=== PATIENT | male | born 1960 | race Caucasian/White ===

== ENCOUNTER 2017-09-03 16:28 | Emergency (ER) | payer BC ==
[~2017-09-03] VITALS: Ht 172.7 cm; Wt 94.5 kg
[2017-09-03] MEDS ORDERED: SOD CHLORIDE 0.9% 1,000 ML IV STA (16:32)
[2017-09-03 16:42] VITALS: Ht 172.7 cm; Wt 94.5 kg
[2017-09-03 16:46] LABS: BASOPHIL # 0.1 10^3/ul (0.0-0.1); BASOPHILS % 0.9 % (0.0-2.0); EOSINOPHILS # 0.2 10^3/ul (0.0-0.5); EOSINOPHILS % 2.1 % (0.0-7.0); HEMATOCRIT 40.6 % (42.0-52.0); HEMOGLOBIN 14.3 g/dl (14.0-18.0); LYMPHOCYTES # 3.6 10^3/ul (0.8-2.9); LYMPHOCYTES % 39.1 % (15.0-51.0); MEAN CORPUSCULAR HEMOGLOBIN 31.7 pg (29.0-33.0); MEAN CORPUSCULAR HGB CONC 35.2 g/dl (32.0-37.0); MEAN PLATELET VOLUME 9.9 fl (7.4-10.4); MONOCYTE # 0.8 10^3/ul (0.3-0.9); MONOCYTES % 8.6 % (0.0-11.0); NEUTROPHIL # 4.5 10^3/ul (1.6-7.5); NEUTROPHILS % 48.9 % (39.0-77.0); PLATELET COUNT 270 10^3/UL (140-415); RED BLOOD COUNT 4.51 10^6/ul (4.70-6.10); RED CELL DISTRIBUTION WIDTH 12.4 % (11.5-14.5); WHITE BLOOD COUNT 9.1 10^3/ul (4.8-10.8)
--- NOTE | 2017-09-03 16:46 | RADRPT ---
PROCEDURE: CT brain without contrast CLINICAL INDICATION: Code stroke, neurologic deficit TECHNIQUE: CT of the brain without contrast was performed on a multidetector CT scanner. One or mo re of the following dose reduction techniques were used: Automated exposure control, adjustment in m A and / or kV according to patient size, use of iterative reconstructive technique. CTDIvol = 44 mG y; DLP = 720 mGy-cm. DICOM images are available. COMPARISON: None available FINDINGS: No acute intracranial hemorrhage is identified. No extra-axial fluid collection is seen. There is no mass effect. No midline shift is identified. Ventricles and sulci are within normal limits for size and configuration. The density of the brain appears unremarkable. Yanez-white differentiation appears preserved. Ather osclerotic calcifications are seen at the intracranial internal carotid arteries. Calvarium and skull base are intact. Mastoid air cells and imaged paranasal sinuses grossly clear. IMPRESSION: No acute intracranial pathology identified. Critical results called to Dr. Hightower at 04:44 p.m., 09/03/2017. RPTAT: GG .Jcarlos Elizabeth MD, Date Time Electronically viewed and signed by .Jcarlos Elizabeth MD, on 09/03/2017 16:46 .O/
[2017-09-03] MEDS ORDERED: SOD CHLORIDE 0.9% 50 ML IVPB STA (16:51)
[2017-09-03 17:00] LABS: INR 1.02; PARTIAL THROMBOPLASTIN TIME 29.7 Sec (25.0-35.0); PROTIME 13.4 Sec (12.2-14.2)
[2017-09-03] MEDS ORDERED: ALTEPLASE 100 MG INJ IV* ONE (17:00)
[2017-09-03] MEDS ORDERED: ALTEPLASE (tPA) 1 MG/ML BOLUS SYG IV* ONE (17:00)
[2017-09-03 17:02] LABS: ALANINE AMINOTRANSFERASE 47 IU/L (13-69); ALBUMIN 4.2 g/dl (3.3-4.9); ALBUMIN/GLOBULIN RATIO 1.16; ALKALINE PHOSPHATASE 81 IU/L (42-121); ANION GAP 15 (8-16); ASPARTATE AMINO TRANSFERASE 29 IU/L (15-46); BILIRUBIN,INDIRECT 0.5 mg/dl (0-1.1); BILIRUBIN,TOTAL 0.5 mg/dl (0.2-1.3); BLOOD UREA NITROGEN 22 mg/dl (7-20); CALCIUM 9.7 mg/dl (8.4-10.2); CARBON DIOXIDE 27 mmol/L (21-31); CHLORIDE 105 mmol/L (97-110); CREATININE 1.14 mg/dl (0.61-1.24); GLUCOSE 100 mg/dl (70-220); POTASSIUM 3.7 mmol/L (3.5-5.1); SODIUM 143 mmol/L (135-144); TOTAL PROTEIN 7.8 g/dl (6.1-8.1)
--- NOTE | 2017-09-03 17:10 | RADRPT ---
PROCEDURE: XR Chest. CLINICAL INDICATION: Possible Stroke TECHNIQUE: PA and Lateral views of the chest were obtained. COMPARISON: None. FINDINGS: The cardiomediastinal silhouette is within normal limits. The lungs are clear. No signs of pleural f luid or pneumothorax are seen. The osseous structures and soft tissues are unremarkable. IMPRESSION: No evidence for active cardiopulmonary disease. RPTAT:AAJJ Sabino Steinberg Physician Date Time Electronically viewed and signed by Sabino Steinberg Physician on 09/03/2017 17:09 QL/
[2017-09-03 17:13] VITALS: BP 154/85; PULSE 83; RESP 20
[2017-09-03 17:15] LABS: TROPONIN-I < 0.012 ng/ml (0.00-0.12)
[2017-09-03] MEDS ORDERED: METO-319 PO (17:30)
[2017-09-03] MEDS ORDERED: CLOP75TA27 PO (17:30)
[2017-09-03] MEDS ORDERED: ATOR80TA75 PO (17:31)
[2017-09-03] MEDS ORDERED: LISI2.5T59 PO (17:31)
--- NOTE | 2017-09-03 17:36 | ERD ---
ER Documentation Chief Complaint Chief Complaint BIB RA FOR EVAL OF RT SIDED WEAKNESS X 30 MINS AGO. HPI This a 57-year-old male with a history of stroke symptoms onset at 4:05 PM today. Patient said he has sudden onset of weakness in his right arm < right leg. He has no loss of sensation. No visual or speech change and no symptoms in the face. Patient is a poor historian about his medical history but states that he is on Plavix for heart problems and has been high blood pressure and cholesterol. Patient states he is only weakness and no sensation loss no loss of bowel or bladder no back pain no headache no recent illness or trauma. No recent melena no recent surgery no history of GI bleeding ROS All systems reviewed and are negative except as per history of present illness. Medications Home Meds Reported Medications Lisinopril* (Lisinopril*) 2.5 Mg Tablet, 2.5 MG PO DAILY, #30 TAB 09/03/17 Atorvastatin* (Atorvastatin*) 80 Mg Tablet, 80 MG PO QHS, #30 TAB 09/03/17 Metoprolol Succinate* (Toprol XL*) 50 Mg Tab.er.24h, 50 MG PO DAILY, #30 TAB 09/03/17 Clopidogrel Bisulfate (Clopidogrel) 75 Mg Tablet, 75 MG PO DAILY, #30 TAB 09/03/17 Allergies Allergies: Coded Allergies: No Known Allergy (Unverified , 09/03/17) PMhx/Soc Hx Alcohol Use: Yes (OCCASIONALLY) Hx Substance Use: No Hx Tobacco Use: No Smoking Status: Never smoker FmHx Family History: No coronary disease Physical Exam Vitals Vital Signs Date Time Temp Pulse Resp B/P Pulse Ox O2 Delivery O2 Flow Rate FiO2 09/03/17 17:58 82 16 170/87 98 09/03/17 17:43 79 16 140/90 98 09/03/17 17:31 88 18 142/92 98 09/03/17 17:28 82 20 146/79 97 09/03/17 17:13 83 20 154/85 98 Room Air 09/03/17 17:13 81 20 158/74 98 09/03/17 16:42 98.0 88 16 141/91 98 Physical Exam Const: Well-developed, well-nourished Head: Atraumatic, normocephalic Eyes: Normal Conjunctiva, PERRLA, EOMI, normal sclera, no nystagmus ENT: Normal External Ears, Nose and Mouth, moist mucus membranes. Neck: Full range of motion. No meningismus, no lymphadenopathy. Resp: Clear to auscultation bilaterally, no wheezing, rhonchi, rales Cardio: Regular rate and rhythm, no murmurs, S1 S2 present Abd: Soft, non tender x 4, non distended. Normal bowel sounds, no guarding or rebound, no pulsitile abdominal masses or bruits Skin: No petechiae or rashes, no ecchymosis , no maculopapular rash Back: No midline or flank tenderness Ext: No cyanosis, or edema, FROM x 4, normal inspection, neurovascularly intact x 4 Neur: Awake and alert, STR 5/5 x 2, right lower extremity strength is 2- 3/5, right upper extremity strength is 3-4 out of 5, sensation intact x 4, no focal findings, cerebellum intact Psych: Normal Mood and Affect Result Diagram: 09/03/17 1635 09/03/17 1635 Results 24 hrs Laboratory Tests Test 09/03/17 16:35 White Blood Count 9.110^3/ul Red Blood Count 4.5110^6/ul Hemoglobin 14.3g/dl Hematocrit 40.6% Mean Corpuscular Volume 90.0fl Mean Corpuscular Hemoglobin 31.7pg Mean Corpuscular Hemoglobin Concent 35.2g/dl Red Cell Distribution Width 12.4% Platelet Count 82144^3/UL Mean Platelet Volume 9.9fl Neutrophils % 48.9% Lymphocytes % 39.1% Monocytes % 8.6% Eosinophils % 2.1% Basophils % 0.9% Nucleated Red Blood Cells % 0.0/100WBC Neutrophils # 4.510^3/ul Lymphocytes # 3.610^3/ul Monocytes # 0.810^3/ul Eosinophils # 0.210^3/ul Basophils # 0.110^3/ul Nucleated Red Blood Cells # 0.010^3/ul Prothrombin Time 13.4Sec Prothrombin Time Ratio 1.0 INR International Normalized Ratio 1.02 Activated Partial Thromboplast Time 29.7Sec Sodium Level 143mmol/L Potassium Level 3.7mmol/L Chloride Level 105mmol/L Carbon Dioxide Level 27mmol/L Anion Gap 15 Blood Urea Nitrogen 22mg/dl Creatinine 1.14mg/dl Glucose Level 100mg/dl Hemoglobin A1c 5.6% Calcium Level 9.7mg/dl Total Bilirubin 0.5mg/dl Direct Bilirubin 0.00mg/dl Indirect Bilirubin 0.5mg/dl Aspartate Amino Transf (AST/SGOT) 29IU/L Alanine Aminotransferase (ALT/SGPT) 47IU/L Alkaline Phosphatase 81IU/L Troponin I < 0.012ng/ml Total Protein 7.8g/dl Albumin 4.2g/dl Globulin 3.60g/dl Albumin/Globulin Ratio 1.16 Current Medications Medications (Trade) Dose Ordered Sig/Leydi Route PRN Reason Start Time Stop Time Status Last Admin Dose Admin Sodium Chloride (NS) 1,000 ml @ 1,000 mls/hr Q1H STAT IV 09/03/17 16:32 09/03/17 17:31 DC Alteplase, Recombinant (Activase) 9 mg BOLUS OVER 1 MIN ONCE IV* 09/03/17 17:00 09/03/17 17:01 DC 09/03/17 17:13 Alteplase, Recombinant 81 mg 81 mg ISCHEMIC STROKE ONCE IV* 09/03/17 17:00 09/03/17 17:01 DC 09/03/17 17:15 Sodium Chloride (NS) 50 ml @ 0 mls/hr ONCE STAT IVPB 09/03/17 16:51 09/03/17 16:54 DC Procedures/MDM EKG: Rate/Rhythm: Normal sinus rhythm with anteroseptal Q waves QRS, ST, QT: NORMAL [place], QRS, QT] Impression: Abnormal EKG PROCEDURE: CT brain without contrast CLINICAL INDICATION: Code stroke, neurologic deficit TECHNIQUE: CT of the brain without contrast was performed on a multidetector CT scanner. One or more of the following dose reduction techniques were used: Automated exposure control, adjustment in mA and / or kV according to patient size, use of iterative reconstructive technique. CTDIvol = 44 mGy; DLP = 720 mGy-cm. DICOM images are available. COMPARISON: None available FINDINGS: No acute intracranial hemorrhage is identified. No extra-axial fluid collection is seen. There is no mass effect. No midline shift is identified. Ventricles and sulci are within normal limits for size and configuration. The density of the brain appears unremarkable. Yanez-white differentiation appears preserved. Atherosclerotic calcifications are seen at the intracranial internal carotid arteries. Calvarium and skull base are intact. Mastoid air cells and imaged paranasal sinuses grossly clear. IMPRESSION: No acute intracranial pathology identified. Critical results called to Dr. Hightower at 04:44 p.m., 09/03/2017. RPTAT: GG .Jcarlos Elizabeth MD, MD Date Time Electronically viewed and signed by .Jcarlos Elizabeth MD, on 09/03/2017 16:46 .O/ CC: TANYA HIGHTOWER DO PROCEDURE: XR Chest. CLINICAL INDICATION: Possible Stroke TECHNIQUE: PA and Lateral views of the chest were obtained. COMPARISON: None. FINDINGS: The cardiomediastinal silhouette is within normal limits. The lungs are clear. No signs of pleural fluid or pneumothorax are seen. The osseous structures and soft tissues are unremarkable. IMPRESSION: No evidence for active cardiopulmonary disease. RPTAT:AAJJ Physician Chloe Date Time Electronically viewed and signed by Physician Chloe on 09/03/2017 17:09 QL/ CC: TANYA HIGHTOWER DO Consulted tele-neurologist was agreed to give TPA. We will give TPA now and transferred [facility]. I did discuss the case with [facility] physician will transfer to their care including CT angios. Review contraindications to TPA and there are none. Critical Care Time: 35 minutes Treatments/Evaluations: Close monitoring and treatment of unstable vital signs, cardiorespiratory, and neurologic status, while maintaining tight balance of fluid, respiratory, and cardiac interventions. This time includes discussing the case with the patient and the patient's family. This time does not include all procedures stated elsewhere in this record. This time also includes reviewing old records, labs and radiological studies. This time includes examining and re-examining the patient. Additionally, this time also includes arranging care with admitting and consulting physicians. We will transfer he was seen now in guarded but stable condition Reexamination at 1800. The patient says he feels much better that his strength is returning. He says he feels like he is back to normal. His right arm and leg strength is 5 out of 5 Departure Diagnosis: Primary Impression: Acute CVA (cerebrovascular accident) Condition: Serious TANYA HIGHTOWER DO Sep 03, 2017 17:36
--- NOTE | 2017-09-03 18:31 | STROKE ---
Date/Time of Note Date/Time of Note DATE: 09/03/17 TIME: 17:09 Patient Information General Patient location: emergency Arrival Date Age 57 Gender male Weight 94.5 kg Vital Signs Vital Signs Vital Signs Date Time Temp Pulse Resp B/P Pulse Ox O2 Delivery O2 Flow Rate FiO2 09/03/17 16:42 98.0 88 16 141/91 98 Patient History Current Medications Allergies: Coded Allergies: No Known Allergy (Unverified , 09/03/17) Labs Hematology Labs Hematology Test 09/03/17 16:35 White Blood Count 9.110^3/ul (4.8-10.8) Red Blood Count 4.5110^6/ul (4.70-6.10) Hemoglobin 14.3g/dl (14.0-18.0) Hematocrit 40.6% (42.0-52.0) Mean Corpuscular Volume 90.0fl (82.0-101.0) Mean Corpuscular Hemoglobin 31.7pg (29.0-33.0) Mean Corpuscular Hemoglobin Concent 35.2g/dl (32.0-37.0) Red Cell Distribution Width 12.4% (11.5-14.5) Platelet Count 09975^3/UL (140-415) Mean Platelet Volume 9.9fl (7.4-10.4) Neutrophils % 48.9% (39.0-77.0) Lymphocytes % 39.1% (15.0-51.0) Monocytes % 8.6% (0.0-11.0) Eosinophils % 2.1% (0.0-7.0) Basophils % 0.9% (0.0-2.0) Nucleated Red Blood Cells % 0.0/100WBC (0.0-0.0) Neutrophils # 4.510^3/ul (1.6-7.5) Lymphocytes # 3.610^3/ul (0.8-2.9) Monocytes # 0.810^3/ul (0.3-0.9) Eosinophils # 0.210^3/ul (0.0-0.5) Basophils # 0.110^3/ul (0.0-0.1) Nucleated Red Blood Cells # 0.010^3/ul (0.0-0.0) Chemistry Labs Chemistry Test 09/03/17 16:35 Sodium Level 143mmol/L (135-144) Potassium Level 3.7mmol/L (3.5-5.1) Chloride Level 105mmol/L (97-110) Carbon Dioxide Level 27mmol/L (21-31) Anion Gap 15 (8-16) Blood Urea Nitrogen 22mg/dl (7-20) Creatinine 1.14mg/dl (0.61-1.24) Glucose Level 100mg/dl (70-220) Hemoglobin A1c 5.6% (0-5.9) Calcium Level 9.7mg/dl (8.4-10.2) Total Bilirubin 0.5mg/dl (0.2-1.3) Direct Bilirubin 0.00mg/dl (0.00-0.20) Indirect Bilirubin 0.5mg/dl (0-1.1) Aspartate Amino Transf (AST/SGOT) 29IU/L (15-46) Alanine Aminotransferase (ALT/SGPT) 47IU/L (13-69) Alkaline Phosphatase 81IU/L (42-121) Total Protein 7.8g/dl (6.1-8.1) Albumin 4.2g/dl (3.3-4.9) Globulin 3.60g/dl (1.3-3.2) Albumin/Globulin Ratio 1.16 Coagulation Labs: Coagulation Test 09/03/17 16:35 Prothrombin Time 13.4Sec (12.2-14.2) Prothrombin Time Ratio 1.0 INR International Normalized Ratio 1.02 Activated Partial Thromboplast Time 29.7Sec (25.0-35.0) History & Physical History of Present Illness 57yo M presents with acute onset right sided weakness. Patient had just completed work, walked out with a friend, and was getting into his car. He suddenly felt difficulty pushing on the gas with his right foot. He then honked for his friend to come back and his friend called EMS. Symptoms began at 4:05pm. Review of Systems Constitutional: no symptoms reported EENTM: no symptoms reported Respiratory: no symptoms reported Cardiovascular: no symptoms reported Gastrointestinal: no symptoms reported Genitourinary: no symptoms reported Musculoskeletal: no symptoms reported Skin: no symptoms reported Psychiatric/Neurological: no symptoms reported All Other Systems: Reviewed and Negative NIH Stroke Scale NIH Stroke Scale 1A - Level of Conciousness: 0 - Alert keenly [id number] LOC Questions: 0 - Answers both [id number] - LOC Commands: 0 - Performs both tasks2 - Best Gaze: 0 - Normal3 - Visual: 0 - No visual loss4 - Facial Palsy: 0 - No visual loss 5A - Motor Arm - Left: 0 - No [id number] - Motor Arm - Right: 1 - [id number] - Motor Leg - Left: 0 - No [id number] - Motor Leg - Right: 1 - Drift7 - Limb Ataxia : 0 - Absent8 - Sensory: 1 - Mild to moderate loss9 - Best Language: 1- Mild to moderate aphasiaDysarthria: 0 - [id number] - Extinction and inattentio: 0 - No abnormalityTotal Score: 4 Date/Time Recorded DATE: 09/03/17 TIME: 17:09 Submitted By Gordo Vieyra t-PA Imaging Review Date/Time Imaging Reviewed DATE: 09/03/17 TIME: 17:09 t-PA Administration Weight 94.5 kg t-PA Recommendation Date/Time 09/03/17 17:08 Recommedation submitted by Gordo Vieyra Recommendations Impression Diagnosis ischemic stroke Recommendation 57yo M presents with acute onset right sided weakness. Neurological exam is notable for right arm and leg weakness, right face and arm numbness, and mild aphasia. I believe the patient is having an acute ischemic stroke. I reviewed the risks and benefits of IV TPA in detail with the patient and his . They are agreeable to my recommendation for IV TPA. I recommend stat CTA of the head and neck. Patient is to be transferred for this and to determine if the patient is a neurointerventional candidate. I recommend further workup include MRI Brain without gadolinium and transthoracic echocardiogram. I recommend post -TPA order sets be followed. Post t-PA Order recommendation: Document q15 min vitals Document q15 min neuro checks Document q15 min bleeding checks Refer to t-PA Order Sets Diagnostic Labs: Lipid Proile Hgb A1C CMP CBC w/Diff Coags Therapy: Physical Therapy Speech Therapy Occupational Therapy Misc. Recommendations: Bedside Swallow Evaluation Pnumatic Compression Devices Avoid Fabian Catheter Stroke Education Smoking Education GORDO VIEYRA Sep 03, 2017 17:19
== END 2017-09-03 19:07 | disposition short-term general hospital (02) ==
LOC: E/R 16:28
DX: I63.9 Cerebral infarction, unspecified (principal); R93.0 Abnormal findings on diagnostic imaging of skull and head, not elsewhere classified; R00.2 Palpitations; R40.2142 Coma scale, eyes open, spontaneous, at arrival to emergency department; R40.2252 Coma scale, best verbal response, oriented, at arrival to emergency department; R40.2362 Coma scale, best motor response, obeys commands, at arrival to emergency department
CPT/HCPCS: 37195; 70450; 71010; 80053; 83036; 84484; 85025; 85610; 85730; 93005; 99291; J2997; J7030